=== PATIENT | male | born 1985 | race Two or more races ===

== ENCOUNTER 2021-09-01 20:16 | Emergency (ER) | payer OTHER ==
[~2021-09-01] VITALS: Ht 165.1 cm; Wt 61.2 kg
[2021-09-01] MEDS ORDERED: OMEPRAZOLE20 MG PO (20:23)
== END 2021-09-01 22:54 | disposition home or self-care (01) ==
LOC: ER 20:16
DX: E86.0 Dehydration (principal); F41.0 Panic disorder [episodic paroxysmal anxiety]; F06.4 Anxiety disorder due to known physiological condition